=== PATIENT | male | born 1965 | race American Indian/Alaskan Native ===

== ENCOUNTER 2019-09-23 06:15 | Day surgery (SDC) | payer MEDICARE, OTHER ==
[2019-09-23] MEDS ORDERED: SODIUM CHLORIDE 0.9% 500 ML 500 ML ONE (06:55)
[2019-09-23 07:16] LABS: Mean Corpuscular HGB Conc 32 % (32-34); Mean Corpuscular Volume 82 fl (84-94); Platelet Count 344 K/mm3 (140-440); Red Blood Count 3.42 M/mm3 (3.65-5.03); Red Cell Distribution Width 19.1 % (13.2-15.2)
[2019-09-23 07:26] LABS: Calcium 9.3 mg/dL (8.4-10.2)
[2019-09-23 07:27] LABS: INR 0.98 (0.87-1.13)
[2019-09-23 07:28] LABS: Partial Thromboplastin Time 38.2 Sec. (24.2-36.6)
[2019-09-23] MEDS: SODIUM CHLORIDE 0.9% 500 ML 500 ML IV SCH ×2 (07:38→09:22)
[2019-09-23] MEDS ORDERED: SODIUM CHLORIDE 0.9% 500 ML 0 ML ONE (08:31)
[2019-09-23] MEDS ORDERED: HEPARIN/NS 5000 UNIT/500ML 1,000 ML IR ONE ×2 (08:31→10:56)
[2019-09-23] MEDS: fentaNYL 100 MCG/2 ML INJ ONE ×8 (09:20→12:27)
[2019-09-23] MEDS ORDERED: ceFAZolin/Water 2 GM/20 ML 2 GM/20 ML SYRINGE IV ONE (09:20)
[2019-09-23] MEDS: MIDAZOLAM 2 MG/2 ML INJ ONE ×9 (09:21→12:36)
[2019-09-23] MEDS: LIDOCAINE (2%) 20 MG/1 ML VIAL 20 ML MDV INFILTRATI ONE ×3 (09:21→11:00)
[2019-09-23] MEDS: HEPARIN 10,000 UNITS/10 ML VIAL ONE ×4 (09:53→12:10)
[2019-09-23] MEDS ORDERED: diphenhydrAMINE 50 MG/ML VIAL ONE (10:00)
[2019-09-23] MEDS ORDERED: methylPREDNISolone Sod Succinate 125 MG/2 ML INJ ONE (10:00)
[2019-09-23] MEDS ORDERED: FAMOTIDINE 20 MG/2 ML INJ IV ONE (10:02)
[2019-09-23] MEDS ORDERED: LIDOCAINE (2%) 20 MG/1 ML VIAL 20 ML MDV INFILTRATI ONE (12:32)
[2019-09-23] MEDS ORDERED: MIDAZOLAM 2 MG/2 ML INJ ONE (12:33)
[2019-09-23] MEDS ORDERED: fentaNYL 100 MCG/2 ML INJ ONE (12:34)
[2019-09-23] MEDS ORDERED: CLOPIDOGREL 300 MG TAB ONE (12:37)
[2019-09-23] MEDS ORDERED: ASPIRIN 81 MG TAB CHEW ONE (12:37)
--- NOTE | 2019-09-23 14:32 | Short Stay Summary ---
Short Stay Documentation Date of service: 09/23/19 Narrative H&P: 54-year-old male with critical limb ischemia of the left lower extremity who presents for revascularization. - History Principal diagnosis: Critical limb ischemia of the left lower extremity H&P: obtained from office - Allergies and Medications Current Medications: Allergies Cephalosporins Allergy (Severe, Verified 09/23/19 07:07) Unknown caused kidney failure oxycodone [From Percocet] Allergy (Verified 09/23/19 07:03) Nausea tacrolimus [From Prograf] Allergy (Verified 09/23/19 07:03) Itching Home Medications Medication Instructions Recorded Confirmed Last Taken Type Amlodipine Besylate [Norvasc] 10 mg PO DAILY 05/08/18 09/23/19 09/23/19 History Atorvastatin [Lipitor Tab] 40 mg PO QHS 05/08/18 09/23/19 05/07/18 History 40 Escitalopram [Lexapro] 10 mg PO DAILY 05/08/18 09/23/19 09/23/19 History Furosemide [Lasix TAB] 40 mg PO DAILY 05/08/18 09/23/19 09/23/19 History Insulin Glargine,Hum.rec.anlog 12 unit SQ QAM 05/08/18 09/23/19 09/22/19 History [Lantus] Metoprolol Succinate [Toprol Xl] 100 mg PO DAILY 05/08/18 09/23/19 09/23/19 History allopurinoL [Zyloprim] 300 mg PO DAILY 05/08/18 09/23/19 09/23/19 History cycloSPORINE, MODIFIED [Gengraf] 25 mg PO BID 05/08/18 09/23/19 09/23/19 History hydrALAZINE [Apresoline TAB] 100 mg PO TID 05/08/18 09/23/19 09/23/19 History predniSONE [Deltasone] 5 mg PO DAILY 05/08/18 09/23/19 09/23/19 History AtorvaSTATin [Lipitor] 40 mg PO DAILY 09/23/19 09/23/19 09/23/19 History Colchicine 0.6 mg PO DAILY 09/23/19 09/23/19 09/23/19 History Escitalopram [Lexapro] 10 mg PO DAILY 03/17/20 03/17/20 03/17/20 History Furosemide [Lasix TAB] 80 mg PO DAILY 09/23/19 09/23/19 09/23/19 History Glimepiride [Amaryl] 1 mg PO QAM 09/23/19 09/23/19 09/22/19 History ISOSORBIDE MONOnitrate [Imdur ER] 60 mg PO DAILY 09/23/19 09/23/19 09/23/19 History Insulin Glargine,Hum.rec.anlog 8 unit SQ PMHY 09/23/19 09/23/19 09/22/19 History [Lantus Solostar] Active Medications Sodium Chloride (Nacl 0.9% 500 Ml) 500 mls @ 50 mls/hr IV DIRECT KATE Last Admin: 09/23/19 09:22 Dose: 50 mls/hr Documented by: - Physical exam General appearance: no acute distress Lungs: Normal air movement Gastrointestinal: distended (Hernia) Extremities: normal temperature, normal color - Brief post op/procedure progress note Date of procedure: 09/23/19 Pre-op diagnosis: Critical limb ischemia of the left lower extremity Post-op diagnosis: same Procedure: 1. Ultrasound-guided access of the right common femoral artery. 2. CO2 angiography of the right lower extremity. 3. Selection of the abdominal aorta with CO2 angiography. 4. Selection of the left external iliac artery, common femoral artery, and superficial femoral artery with CO2 angiography. 5. Ultrasound-guided access of the left popliteal artery. 6. Flossing of the left superficial femoral artery from a right common femoral artery and left popliteal approach. 7. Deployment of a 7 mm spider embolic protection device in the left popliteal artery 8. Angioplasty of the left mid and distal superficial femoral artery and proximal popliteal artery with a 3 mm x 120 mm angioplasty balloon 9. Lipoplasty of the left mid and distal superficial femoral artery and proximal popliteal artery with a 6 mm x 60 mm lipoplasty shockwave balloon 10. Angioplasty of the left mid and distal superficial femoral artery with a 6 mm x 150 mm iNPACT DCB 11. Angioplasty of the left distal superficial femoral artery and proximal popliteal artery with a 6 mm x 100 mm angioplasty balloon and 6 mm x 150 mm iNPACT DCB 12. Closure of the right common femoral artery with a 6 [place] pro glide Anesthesia: local (With conscious sedation) Surgeon: LEA ROSS VERONICA Estimated blood loss: minimal Condition: stable - Hospital course Hospital course: Patient tolerated procedure well. Loaded on aspirin and Plavix. Patient was discharged successfully after 4 hours. - Disposition Condition at discharge: Stable Disposition: [id number] TO HOME OR SELFCARE - Discharge Diagnoses (1) Critical lower limb ischemia Status: Acute (2) Atherosclerotic peripheral vascular disease with ulceration Status: Acute (3) Status post kidney transplant Status: Acute (4) Status post pancreas transplantation Status: Acute Short Stay Discharge Plan Activity: advance as tolerated Weight Bearing Status: Weight Bear as Tolerated Diet: renal Wound: keep clean and dry, per wound nurse instructions (Can remove pressure dressing tomorrow morning) Additional Instructions: follow up with Primary Medical doctor in 1 week, return to Emergency Room for medical emergencies (ER). Follow up with: BYRON COOLEY MD [Primary Care Provider] - 7 Days Forms: Post Arteriogram Instruct Prescriptions: Aspirin [Aspirin BABY CHEW TAB] 81 mg PO QDAY #30 tab.chew Clopidogrel [Plavix] 75 mg PO QDAY #30 tablet
--- NOTE | 2019-09-23 14:32 | Operative Report ---
Operative Report Operative Report: EXAM: 1. Ultrasound-guided access of the right common femoral artery. 2. CO2 angiography of the right lower extremity. 3. Selection of the abdominal aorta with CO2 angiography. 4. Selection of the left external iliac artery, common femoral artery, and superficial femoral artery with CO2 angiography. 5. Ultrasound-guided access of the left popliteal artery. 6. Flossing of the left superficial femoral artery from a right common femoral artery and left popliteal approach. 7. Deployment of a 7 mm spider embolic protection device in the left popliteal artery 8. Angioplasty of the left mid and distal superficial femoral artery and proximal popliteal artery with a 3 mm x 120 mm angioplasty balloon 9. Lipoplasty of the left mid and distal superficial femoral artery and proximal popliteal artery with a 6 mm x 60 mm lipoplasty shockwave balloon 10. Angioplasty of the left mid and distal superficial femoral artery with a 6 mm x 150 mm iNPACT DCB 11. Angioplasty of the left distal superficial femoral artery and proximal popliteal artery with a 6 mm x 100 mm angioplasty balloon and 6 mm x 150 mm iNPACT DCB 12. Closure of the right common femoral artery with a 6 Citizen [place] pro glide DATE: 09/23/2019 FORGING DIES FINAL FINISHER: LEA MARTIN MD INDICATION: Critical limb ischemia of the left lower extremity with peripheral vascular disease and ulceration MEDICATIONS: Please see nursing report for full details. DEVICES: 6 mm x 150 mm iNPACT DCB 6 mm x 60 mm shockwave angioplasty balloon 3 mm x 120 mm angioplasty balloon 6 mm x 100 mm angioplasty balloon 7 mm spider embolic protection device CONTRAST: 16 mL's of nonionic contrast, CO2 angiography PROCEDURE: The risks, benefits, and alternatives were discussed with the patient; written informed consent was obtained. The groins were prepped and draped in a sterile fashion and the left leg was prepped and draped in a sterile fashion in the midportion of the case. Ultrasound was used to evaluate the right common femoral artery which was patent. Under direct ultrasound guidance, the right common femoral artery was accessed with a 21-gauge micropuncture needle. 0.018 inch wire was passed into the aorta. Needle was exchanged for transitional dilator. Wire was exchanged for a 0.035 inch wire. Transitional dilator was exchanged for 5 Citizen [place] sheath. CO2 angiography was performed demonstrating patency of the right common femoral artery, proximal most superficial femoral artery, profundofemoral artery, and external iliac artery. The abdominal aorta was selected and CO2 angiography was performed. The infrarenal abdominal aorta is patent. The bilateral common iliac arteries and external iliac arteries are patent. The internal iliac arteries are patent. The left renal artery arising from the external iliac artery is partially visualized. The left external iliac artery was selected and superficial femoral artery was selected. CO2 angiography demonstrated a proximal 5 cm plaque that resulted in 40% narrowing, and the mid superficial femoral artery with multifocal 50% narrowings with a distal superficial femoral artery short segment occlusion due to a large plaque with tandem 70% narrowing and 50% narrowings. The proximal popliteal artery has a focal 50% narrowing. The rest of the popliteal artery was patent. The tibioperoneal trunk is patent. The peroneal artery has diffuse 20 to 30% narrowing but is the dominant flow to the foot and is patent. The anterior tibial artery is occluded after the first 5 cm and the posterior tibial artery is occluded after the first few centimeters and both of these vessels resulted in numerous extensive corkscrew collaterals supplying the foot. 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 The patient was heparinized. Sheath was exchanged for a 6 Citizen [place] 65 cm [place] destination positioned in the left superficial femoral artery. Multiple wires and catheters were used to attempt to cross the short segment focal 99% narrowing/occlusion, but the wires would not pass. Ultimately, I could not cross from a up and over approach. Ultrasound was used to evaluate the left proximal popliteal artery after the site was prepped and draped in a sterile fashion. Under direct ultrasound guidance, the left popliteal artery was accessed with a 21-gauge micropuncture needle. 0.018 inch wire was passed into the superficial femoral artery. Needle was exchanged for the inner portion of the transitional dilator. Wire was exchanged for a V 18 wire which was used to cross the occlusion. The V 18 wire was snared and the artery was then flossed. Through the up and over approach, a 7 mm spider embolic protection device was deployed in the left distal superficial femoral artery. 3 mm x 120 mm angioplasty balloon was used to predilate the left superficial femoral artery and proximal popliteal artery. Shockwave lithotripsy 6 mm x 60 mm angioplasty balloon was then advanced over the wire and used to shockwave angioplasty the superficial femoral artery and proximal popliteal artery. 6 mm x 150 mm drug- coated balloon was then used to perform angioplasty of the mid superficial femoral artery, but it would not pass into the distal superficial femoral artery. The distal superficial femoral artery was again treated with a 6 mm x 100 mm angioplasty balloon at higher pressure. The embolic protection device was then retrieved and a 0.035 inch wire was passed into the distal popliteal artery. 6 mm x 150 mm drug-coated balloon was then used to perform angioplasty of the distal superficial femoral artery and proximal popliteal artery as the popliteal artery micropuncture sheath was removed. The site was then tamponaded. After removal, digital subtraction angiography was performed demonstrating less than 10 to 20% residual narrowing of the distal superficial femoral artery, mid superficial femoral artery, and proximal popliteal artery. The runoff was uncha nged. All wires, catheters, and sheaths were retracted to the right external iliac artery and the site was closed with a 6 Citizen [place] pro glide. Sterile dressing and pressure dressing applied. Patient tolerated the procedure well. No immediate postprocedural complications. FINDINGS: Please see procedure note above IMPRESSION: 1. Successful ultrasound-guided access of the right common femoral artery and left popliteal artery with pro-glide assisted closure of the right common femoral artery. 2. Successful angioplasty and lithoplasty of the left superficial femoral artery and popliteal artery.
[2019-09-23 17:12] VITALS: BP 141/76
== END 2019-09-23 06:16 | disposition home or self-care (01) ==
LOC: CATHLABREC 06:15
PROVIDERS: ATTEND Radiology Diagnostic Radiology
DX: I70.245 Atherosclerosis of native arteries of left leg with ulceration of other part of foot (principal); I13.2 Hypertensive heart and chronic kidney disease with heart failure and with stage 5 chronic kidney disease, or end stage renal disease; N18.6 End stage renal disease; I50.9 Heart failure, unspecified; E78.00 Pure hypercholesterolemia, unspecified; G47.30 Sleep apnea, unspecified; Z99.2 Dependence on renal dialysis; Z79.899 Other long term (current) drug therapy; Z79.4 Long term (current) use of insulin; Z79.82 Long term (current) use of aspirin; Z94.0 Kidney transplant status; Z94.83 Pancreas transplant status; Z98.41 Cataract extraction status, right eye; Z88.8 Allergy status to other drugs, medicaments and biological substances
CPT/HCPCS: 36415; 37224; 75625; 75710; 76937; 80048; 85027; 85610; 85730; 99156; 99157; C1725; C1760; C1769; C1773; C1884; C1887; C2623; J0690; J1200; J1644; J2250; J2930; J3010; J7040; Q9967

== ENCOUNTER 2021-08-23 07:26 | Day surgery (SDC) | payer MEDICARE ==
[2021-08-23] MEDS ORDERED: SODIUM CHLORIDE 0.9% 1000 ML 1,000 ML IV SCH (08:15)
[2021-08-23 08:33] LABS: Hematocrit 36.3 % (35.5-45.6); Hemoglobin 11.8 gm/dl (11.8-15.2); Mean Corpuscular HGB Conc 33 % (32-34); Mean Corpuscular Volume 77 fl (84-94); Red Blood Count 4.68 M/mm3 (3.65-5.03)
[2021-08-23 08:34] LABS: Platelet Count 241 K/mm3 (140-440); Red Cell Distribution Width 28.1 % (13.2-15.2)
[2021-08-23 08:43] LABS: INR 0.81 (0.87-1.13)
[2021-08-23 08:44] LABS: Partial Thromboplastin Time 25.7 Sec. (24.2-36.6)
[2021-08-23 09:17] LABS: Blood Urea Nitrogen TNR mg/dL (9-20)
[2021-08-23 09:18] LABS: BUN/Creatinine Ratio TNR; Calcium TNR mg/dL (8.4-10.2); Hemolysis Index TNR
[2021-08-23 10:18] LABS: Calcium 8.7 mg/dL (8.4-10.2)
[2021-08-23] MEDS ORDERED: HEPARIN/NS 5000 UNIT/500ML 1,000 ML IR ONE (12:37)
[2021-08-23] MEDS ORDERED: LIDOCAINE (1%) 10 MG/1 ML VIAL 20 ML MDV ONE (12:37)
[2021-08-23] MEDS: HEPARIN 10,000 UNITS/10 ML VIAL ONE ×2 (13:05→14:27)
[2021-08-23] MEDS: MIDAZOLAM 2 MG/2 ML INJ ONE ×4 (13:16→15:19)
[2021-08-23] MEDS: fentaNYL 100 MCG/2 ML INJ ONE ×4 (13:17→15:19)
[2021-08-23] MEDS ORDERED: HEPARIN/NS 5000 UNIT/500ML 500 ML IR ONE (15:01)
[2021-08-23] MEDS ORDERED: CLOPIDOGREL 300 MG TAB ONE (15:25)
[2021-08-23] MEDS ORDERED: CLOPIDOGREL 300 MG TAB PO ONE (15:40)
[2021-08-23] MEDS ORDERED: ASPIRIN 81 MG TAB CHEW PO SCH (16:00)
--- NOTE | 2021-08-23 16:13 | Short Stay Summary ---
Short Stay Documentation Date of service: 08/23/21 Narrative H&P: 56-year-old male with end-stage renal disease status post renal transplant with multiple medical issues including congestive heart failure who presents with bilateral lower extremity critical limb ischemia. Plan for right lower extremity critical limb ischemia intervention. Risk, benefits, alternative discussed, patient agrees with procedure. - History Principal diagnosis: Critical limb ischemia of the right lower extremity H&P: obtained from office - Allergies and Medications Current Medications: Allergies Cephalosporins Allergy (Severe, Verified 09/23/19 07:07) Unknown caused kidney failure oxycodone [From Percocet] Allergy (Verified 09/23/19 07:03) Nausea tacrolimus [From Prograf] Allergy (Verified 09/23/19 07:03) Itching Home Medications Medication Instructions Recorded Confirmed Last Taken Type Amlodipine Besylate [Norvasc] 10 mg PO DAILY 05/08/18 08/23/21 08/23/21 History 10 MG Atorvastatin [Lipitor Tab] 40 mg PO QHS 05/08/18 08/23/21 08/22/21 History 40 MG Insulin Glargine,Hum.rec.anlog 12 unit SQ QAM 05/08/18 08/23/21 08/22/21 History [Lantus] 12 UNITS Metoprolol Succinate [Toprol Xl] 100 mg PO DAILY 05/08/18 08/23/21 08/23/21 07:00 History 100 MG allopurinoL [Zyloprim] 300 mg PO DAILY 05/08/18 08/23/21 08/23/21 07:00 History 300 MG cycloSPORINE, MODIFIED [Gengraf] 25 mg PO BID 05/08/18 08/23/21 08/23/21 07:00 History 25 MG hydrALAZINE [Apresoline TAB] 100 mg PO TID 05/08/18 08/23/21 08/23/21 History 100 UNITS predniSONE [Deltasone] 5 mg PO DAILY 05/08/18 08/23/21 08/23/21 History 0700 Aspirin [Aspirin BABY CHEW TAB] 81 mg PO QDAY #30 tab.chew 09/23/19 08/23/21 Unknown Rx Clopidogrel [Plavix] 75 mg PO QDAY #30 tablet 09/23/19 08/23/21 08/23/21 Rx 75 MG Colchicine 0.6 mg PO DAILY 09/23/19 08/23/21 09/23/19 History Escitalopram [Lexapro] 20 mg PO DAILY 09/23/19 08/23/21 08/23/21 History 0700 Furosemide [Lasix TAB] 80 mg PO DAILY 09/23/19 08/23/21 08/23/21 07:00 History 80 MG Glimepiride [Amaryl] 1 mg PO QAM 09/23/19 08/23/21 08/23/21 History 1 MG ISOSORBIDE MONOnitrate [Imdur ER] 60 mg PO DAILY 09/23/19 08/23/21 08/23/21 History 60 MG Insulin Glargine,Hum.rec.anlog 8 unit SQ PMHY 09/23/19 08/23/21 08/22/21 History [Lantus Solostar] 10 UNTS Sodium Bicarbonate 650 mg PO BID 08/23/21 08/23/21 08/23/21 History 650 MG cycloSPORINE, MODIFIED [Gengraf] 25 mg PO BID 08/23/21 08/23/21 08/23/21 History 25 MG Active Medications Aspirin (Aspirin 81 Mg Tab Chew) 81 mg PO QDAY KATE Last Admin: 08/23/21 16:07 Dose: 81 mg Sodium Chloride (Nacl 0.9% 1000 Ml) 1,000 mls @ 42 mls/hr IV DIRECT KATE - Physical exam General appearance: no acute distress Lungs: Normal air movement Gastrointestinal: other (Large ventral hernia) Extremities: abnormal (Wounds of the bilateral lower extremities) - Brief post op/procedure progress note Date of procedure: 08/23/21 Pre-op diagnosis: Critical limb ischemia of the right lower extremit Post-op diagnosis: same Procedure: 1. Ultrasound-guided access of the left common femoral artery. 2. CO2 angiography of the left lower extremity. 3. Selection of the abdominal aorta and CO2 angiography 4. Selection of the right external iliac artery, common femoral artery, superficial femoral artery, and popliteal artery with a combination of CO2 and conventional angiography. 5. Shockwave lithoplasty of the right superficial femoral artery and popliteal artery with a 5 mm x 60 mm shockwave lithoplasty device 6. Angioplasty of the right popliteal artery and entire superficial femoral artery with a 5 mm x 150 mm iNPACT balloon (x3) 7. Angioplasty of the right popliteal artery with a 6 mm x 120 mm angioplasty balloon, 5 mm x 100 mm angiosculpt, and 6 mm x 150 mm iNPACT balloon 8. Closure of the left common femoral artery with a 6 Burkin[place] Pro style Anesthesia: local (With conscious sedation) Surgeon: LEA MARTIN Estimated blood loss: minimal Condition: stable - Hospital course Hospital course: Patient tolerated the procedure well. No immediate postprocedural complications. Ready for discharge in 2 hours. Loaded with aspirin and Plavix. - Disposition Condition at discharge: Stable Disposition: 01 HOME / SELF CARE / HOMELESS - Discharge Diagnoses (1) Atherosclerotic peripheral vascular disease with ulceration Status: Acute (2) Critical lower limb ischemia Status: Acute (3) Status post kidney transplant Status: Acute (4) Status post pancreas transplantation Status: Acute Short Stay Discharge Plan Activity: advance as tolerated Weight Bearing Status: Weight Bear as Tolerated Diet: renal Wound: keep clean and dry Additional Instructions: Do not lift more than 10 pounds for 3 to 5 days Follow up with: ANUM TORRES [Other] - 7 Days
--- NOTE | 2021-08-23 16:24 | Operative Report ---
Operative Report Operative Report: EXAM: 1. Ultrasound-guided access of the left common femoral artery. 2. CO2 angiography of the left lower extremity. 3. Selection of the abdominal aorta with CO2 angiography. 4. Selection of the right external iliac artery, common femoral artery, superficial femoral artery and popliteal artery with CO2 angiography and conventional angiography 5. Angioplasty of the right popliteal artery with a 3 mm x 120 mm angioplasty balloon 6. Attempted deployment of a 7 mm spider EPD in the right popliteal artery, but the device would not cross. 7. Lipoplasty of the right superficial femoral artery and popliteal artery with a 5 mm x 60 mm lipoplasty shockwave balloon 8. Angioplasty of the right popliteal artery and entire superficial femoral artery with a 5 mm x 150 mm iNPACT balloon (x3) 9. Angioplasty of the right popliteal artery with a 6 mm x 120 mm angioplasty balloon, 5 mm x 100 mm angiosculpt, and 6 mm x 150 mm iNPACT balloon 10. Closure of the left common femoral artery with a 6 [place] Pro style DATE: 08/23/2021 CLOTHES DRIER ASSEMBLER: LEA MARTIN MD INDICATION: Critical limb ischemia of the right lower extremity with peripheral vascular disease and ulceration MEDICATIONS: Please see nursing report for full details. DEVICES: 6 mm x 150 mm iNPACT DCB 5 mm x 60 mm shockwave angioplasty balloon 3 mm x 120 mm angioplasty balloon 6 mm x 120 mm angioplasty balloon 5 mm x 150 mm iNPACT DCB (x3) 5 mm x 100 mm angiosculpt CONTRAST: 25 mL's of nonionic contrast, CO2 angiography PROCEDURE: The risks, benefits, and alternatives were discussed with the patient; written informed consent was obtained. The groins were prepped and draped in a sterile fashion and the right leg was prepped and draped in a sterile fashion in the midportion of the case. Ultrasound was used to evaluate the left common femoral artery which was patent. Under direct ultrasound guidance, the left common femoral artery was accessed with a 21-gauge micropuncture needle. 0.018 inch wire was passed into the aorta. Needle was exchanged for transitional dilator. Wire was exchanged for a 0.035 inch wire. Transitional dilator was exchanged for 5 [place] sheath. CO2 angiography was performed demonstrating patency of the left common femoral artery, proximal most superficial femoral artery, profunda femoral artery, and external iliac artery. The abdominal aorta was selected and CO2 angiography was performed. The infrarenal abdominal aorta is patent. The bilateral common iliac arteries and external iliac arteries are patent. The internal iliac arteries are patent. The left renal artery arising from the external iliac artery is partially visualized. The right external iliac artery, superficial femoral artery, and popliteal artery were selected and intermittent angiography was performed. The right common femoral artery is patent. The right profunda femoral artery is patent. The right proximal superficial femoral artery has a focal 80 to 90% lesion which is a calcified plaque. The mid right superficial femoral artery has a focal 40% narrowing. The right distal superficial femoral artery has an area that extends 5 to 10 cm that has diffuse 50% narrowing with focal 90% narrowing in the distal portion of the vessel which extends into the [id number] popliteal artery. The right mid and below the knee popliteal artery is patent. The tibioperoneal trunk is 70 % distally narrowed and the peroneal artery has tandem 50% narrowings in the proximal portion of the vessel. The rest of the peroneal artery is patent and extends into numerous collaterals at the level of the foot. The posterior tibial artery is occluded and the anterior tibial artery is occluded after 1 cm and extends into numerous corkscrew collaterals that passed into the foot compatible with Buerger's disease. After refusing the diagnostic angiogram, I decided that the patient required intervention for tissue loss/critical limb ischemia. The patient was heparinized. Sheath was exchanged for a 6 [place] 45 cm [place] destination positioned in the right common femoral artery. Multiple wires and catheters were used to attempt to cross the short segment focal 99% narrowing/occlusion which was successful. Support catheter was then advanced into the popliteal artery and digital subtraction angiography was performed confirming position. I attempted to pass an embolic protection device over the 0.018 inch wire, but the embolic protection device would not pass despite multiple attempts. 3 mm x 120 mm angioplasty balloon was used to perform angioplasty of the popliteal artery for predilatation. I attempted one last time to pass the spider device, but it would not pass over the wire even with predilatation Therefore I decided not to use embolic protection device. Wire was then exchanged for a 0.014 inch Choice PT extra-support. Due to the heavily calcific nature of the lesion, I decided to use a shockwave lithotripsy balloon. 5 mm x 60 mm angioplasty balloon was used to treat the popliteal artery multiple times, distal and mid SFA, and the proximal SFA. During this process, the balloon ruptured and was successfully removed Wire was exchanged for a 0.035 inch wire and 5 mm x 150 mm iNPACT balloon was used to perform angioplasty of the popliteal artery and entire superficial fe moral artery requiring 3 balloons. Digital subtraction angiography was performed demonstrating 30 to 40% residual stenosis of the proximal superficial femoral artery and did not 80% residual stenosis of the popliteal artery. 6 mm x 120 mm angioplasty balloon was used to perform angioplasty of the popliteal artery which was then followed by a wire exchange for a 0.014 inch wire and and angiosculpt 5 mm x 100 mm angioplasty balloon was used to perform angioplasty of the popliteal artery. Afterwards, wire exchanged for a 0.035 inch wire was performed and a 6 mm x 150 mm iNPACT balloon was used to perform angioplasty of the popliteal artery. Digital subtraction angiography was performed demonstrating 50% residual narrowing of the popliteal artery. The areas of residual narrowing were due to heavy calcification of these areas. I considered stenting them, but the stent would not expand because of the underlying heavy calcification and would likely result in a poor outcome. I decided to leave the lesions alone for now with plan for possible future intervention. All wires, catheters, and sheaths were retracted to the left external iliac artery and the left common femoral site was closed with a 6 [place] pro style. Sterile dressing and pressure dressing applied. Patient tolerated the procedure well. No immediate postprocedural complications. FINDINGS: Please see procedure note above IMPRESSION: 1. Successful ultrasound-guided access of the left common femoral artery with pro-glide assisted closure. 2. Successful angioplasty and lithoplasty of the right superficial femoral artery and popliteal artery.
[2021-08-23 17:03] VITALS: BP 153/47
== END 2021-08-23 07:27 | disposition home or self-care (01) ==
LOC: CATHLABREC 07:26
PROVIDERS: ATTEND Radiology Diagnostic Radiology
DX: I70.235 Atherosclerosis of native arteries of right leg with ulceration of other part of foot (principal); I70.239 Atherosclerosis of native arteries of right leg with ulceration of unspecified site; E11.51 Type 2 diabetes mellitus with diabetic peripheral angiopathy without gangrene; L97.919 Non-pressure chronic ulcer of unspecified part of right lower leg with unspecified severity; I99.8 Other disorder of circulatory system; I13.2 Hypertensive heart and chronic kidney disease with heart failure and with stage 5 chronic kidney disease, or end stage renal disease; E11.22 Type 2 diabetes mellitus with diabetic chronic kidney disease; I50.9 Heart failure, unspecified; N18.6 End stage renal disease; E78.00 Pure hypercholesterolemia, unspecified; G47.30 Sleep apnea, unspecified; M19.90 Unspecified osteoarthritis, unspecified site; F32.9 Major depressive disorder, single episode, unspecified; D64.9 Anemia, unspecified; Z79.899 Other long term (current) drug therapy; Z88.8 Allergy status to other drugs, medicaments and biological substances; Z79.4 Long term (current) use of insulin; Z79.82 Long term (current) use of aspirin; Z94.0 Kidney transplant status; Z94.83 Pancreas transplant status; Z98.41 Cataract extraction status, right eye; Z87.01 Personal history of pneumonia (recurrent); Z98.890 Other specified postprocedural states; Z80.8 Family history of malignant neoplasm of other organs or systems
CPT/HCPCS: 36415; 37224; 75625; 75710; 76937; 80048; 85027; 85610; 85730; 99156; 99157; C1725; C1760; C1769; C1884; C1887; C2623; J1644; J2250; J3010; J3490; J7030; Q0162; Q9967

== ENCOUNTER 2021-09-06 07:05 | Day surgery (SDC) | payer MEDICARE ==
[2021-09-06] MEDS ORDERED: SODIUM CHLORIDE 0.9% 1000 ML 1,000 ML IV SCH (08:00)
[2021-09-06 08:33] LABS: Hematocrit 35.8 % (35.5-45.6); Hemoglobin 11.9 gm/dl (11.8-15.2); Mean Corpuscular HGB Conc 33 % (32-34); Mean Corpuscular Volume 79 fl (84-94); Platelet Count 286 K/mm3 (140-440); Red Blood Count 4.55 M/mm3 (3.65-5.03)
[2021-09-06 08:38] LABS: INR 0.85 (0.87-1.13)
[2021-09-06 08:40] LABS: Partial Thromboplastin Time 35.7 Sec. (24.2-36.6)
[2021-09-06 08:49] LABS: Calcium 9.5 mg/dL (8.4-10.2)
[2021-09-06 08:52] LABS: Red Cell Distribution Width 25.2 % (13.2-15.2)
[2021-09-06] MEDS ORDERED: LIDOCAINE (2%) 20 MG/1 ML VIAL 20 ML MDV INFILTRATI ONE (09:28)
[2021-09-06] MEDS ORDERED: HEPARIN/NS 5000 UNIT/500ML 1,000 ML IR ONE (09:28)
[2021-09-06] MEDS ORDERED: HEPARIN 10,000 UNITS/10 ML VIAL ONE (09:28)
[2021-09-06] MEDS: MIDAZOLAM 2 MG/2 ML INJ ONE ×2 (10:26→10:30)
[2021-09-06] MEDS: fentaNYL 100 MCG/2 ML INJ ONE ×2 (10:26→10:30)
[2021-09-06] MEDS ORDERED: MIDAZOLAM 2 MG/2 ML INJ ONE (10:43)
[2021-09-06] MEDS ORDERED: fentaNYL 100 MCG/2 ML INJ ONE (10:44)
[2021-09-06] MEDS ORDERED: CLOPIDOGREL 300 MG TAB ONE (11:31)
[2021-09-06] MEDS ORDERED: ASPIRIN 81 MG TAB CHEW ONE (11:32)
--- NOTE | 2021-09-06 11:55 | Short Stay Summary ---
Short Stay Documentation Date of service: 09/06/21 Narrative H&P: 56-year-old male status post pancreas and kidney transplant with bilateral lower extremity critical limb ischemia who presents for revascularization of the left lower extremity. Risk, benefits, alternatives discussed, patient agrees with procedure. Held diuretics the day before and today. Provided IV normal saline infusion. - History Principal diagnosis: CLI of the left lower extremity H&P: obtained from office - Allergies and Medications Current Medications: Allergies Cephalosporins Allergy (Severe, Verified 09/23/19 07:07) Unknown caused kidney failure oxycodone [From Percocet] Allergy (Verified 09/23/19 07:03) Nausea tacrolimus [From Prograf] Allergy (Verified 09/23/19 07:03) Itching Home Medications Medication Instructions Recorded Confirmed Last Taken Type Amlodipine Besylate [Norvasc] 10 mg PO DAILY 05/08/18 09/06/21 09/06/21 History 1 tab Atorvastatin [Lipitor Tab] 40 mg PO QHS 05/08/18 09/06/21 09/05/21 History 1 tab Insulin Glargine,Hum.rec.anlog 12 unit SQ QAM 05/08/18 09/06/21 09/05/21 History [Lantus] Metoprolol Succinate [Toprol Xl] 100 mg PO DAILY 05/08/18 09/06/21 09/06/21 History 0600 allopurinoL [Zyloprim] 300 mg PO DAILY 05/08/18 09/06/21 09/06/21 06:00 History 1 tab hydrALAZINE [Apresoline TAB] 100 mg PO TID 05/08/18 09/06/21 09/06/21 06:00 History 1 tab predniSONE [Deltasone] 5 mg PO DAILY 05/08/18 09/06/21 09/06/21 06:00 History 1 tab Aspirin [Aspirin BABY CHEW TAB] 81 mg PO QDAY #30 tab.chew 09/23/19 09/06/21 09/05/21 Rx 1 tab Clopidogrel [Plavix] 75 mg PO QDAY #30 tablet 09/23/19 09/06/21 09/05/21 Rx 1 tab Colchicine 0.6 mg PO DAILY 09/23/19 09/06/21 09/23/19 History Escitalopram [Lexapro] 20 mg PO DAILY 09/23/19 09/06/21 09/05/21 History 0600 Furosemide [Lasix TAB] 80 mg PO DAILY 09/23/19 09/06/21 09/05/21 History 1 tab Glimepiride [Amaryl] 1 mg PO QAM 09/23/19 09/06/21 09/05/21 History 0700 ISOSORBIDE MONOnitrate [Imdur ER] 60 mg PO DAILY 09/23/19 09/06/21 09/06/21 06:00 History 1 tab Insulin Glargine,Hum.rec.anlog 8 unit SQ PMHY 09/23/19 09/06/21 09/05/21 History [Lantus Solostar] Sodium Bicarbonate 650 mg PO BID 08/23/21 09/06/21 09/06/21 06:00 History 1 tab cycloSPORINE, MODIFIED [Gengraf] 25 mg PO BID 08/23/21 09/06/21 09/06/21 06:00 History 1 tab Active Medications Sodium Chloride (Nacl 0.9% 1000 Ml) 1,000 mls @ 100 mls/hr IV DIRECT KATE - Physical exam General appearance: no acute distress HEENT: EOMI, Mucous membr. moist/pink Lungs: Normal air movement Heart: Regular rate Gastrointestinal: other (Large ventral hernia) Extremities: abnormal (Wounds of the bilateral lower extremity) - Brief post op/procedure progress note Date of procedure: 09/06/21 Pre-op diagnosis: LLE PVD with ulcers and CLI Post-op diagnosis: same Procedure: 1. Ultrasound-guided access of the right common femoral artery. 2. CO2 angiography of the right lower extremity 3. Selection of the abdominal aorta with CO2 angiography 4. Selection of the left external iliac artery, superficial femoral artery, and popliteal artery with CO2 angiography of the left lower extremity. 5. Fluoroscopic guided placement of a 7 mm spider embolic protection device in the left popliteal artery. 6. Atherectomy of the left qvors-ydu-ytzv popliteal artery with a [employer] M device 7. Shockwave lithoplasty of the left tufiq-bpn-rpfg popliteal artery with a 6 mm x 60 mm shockwave lithoplasty balloon 8. Angioplasty of the left iblhc-owd-zzif popliteal artery with a 6 mm x 150 mm iNPACT balloon 9. Capture of the spider embolic protection device 10. Closure of the right common femoral artery with a 6 [place] Pro style Anesthesia: local (With conscious sedation) Surgeon: LEA MARTIN Estimated blood loss: minimal Condition: stable - Hospital course Hospital course: Patient tolerated the procedure well. He had 2 hours of fluid before procedure. 1 hour fluid during procedure. 2 hours fluid after procedure. Fluid is at 100 mL/h (essential 1 mL/kg/h). - Disposition Condition at discharge: Stable Disposition: 01 HOME / SELF CARE / HOMELESS - Discharge Diagnoses (1) Atherosclerotic peripheral vascular disease with ulceration Status: Acute (2) Critical lower limb ischemia Status: Acute (3) Status post kidney transplant Status: Acute (4) Status post pancreas transplantation Status: Acute Short Stay Discharge Plan Activity: advance as tolerated Weight Bearing Status: Weight Bear as Tolerated (Do not lift more than 10 pounds for 1 week ; keep right groin dry for the next 3 to 5 days) Diet: renal Wound: keep clean and dry Follow up with: CARISSA TORRES [Other] - 7 Days
--- NOTE | 2021-09-06 11:56 | Operative Report ---
Operative Report Operative Report: EXAM: 1. Ultrasound-guided access of the right common femoral artery. 2. CO2 angiography of the right lower extremity 3. Selection of the abdominal aorta with CO2 angiography 4. Selection of the left external iliac artery, superficial femoral artery, and popliteal artery with CO2 angiography of the left lower extremity. 5. Fluoroscopic guided placement of a 7 mm spider embolic protection device in the left popliteal artery. 6. Atherectomy of the left wyqpk-usw-bcxn popliteal artery with a [employer] M device 7. Shockwave lithoplasty of the left kyaoc-udj-fkgl popliteal artery with a 6 mm x 60 mm shockwave lithoplasty balloon 8. Angioplasty of the left ppard-ucj-exou popliteal artery with a 6 mm x 150 mm iNPACT balloon 9. Capture of the spider embolic protection device 10. Closure of the right common femoral artery with a 6 [place] Pro style DATE: 09/06/2021 PHYSICIAN AIDE: LEA MARTIN MD INDICATION: Critical limb ischemia of the left lower extremity with peripheral vascular disease and ulceration MEDICATIONS: Please see nursing report for full details. DEVICES: 6 mm x 150 mm iNPACT DCB 6 mm x 60 mm shockwave angioplasty balloon [employer] M device 7 mm spider embolic protection device CONTRAST: 11 mL's of nonionic contrast, CO2 angiography PROCEDURE: The risks, benefits, and alternatives were discussed with the patient; written informed consent was obtained. The groins were prepped and draped in a sterile fashion. Ultrasound was used to evaluate the right common femoral artery which was patent. Under direct ultrasound guidance, the right common femoral artery was accessed with a 21-gauge micropuncture needle. 0.018 inch wire was passed into the aorta. Needle was exchanged for transitional dilator. Wire was exchanged for a 0.035 inch wire. Transitional dilator was exchanged for 5 Angolan sheath. CO2 angiography was performed demonstrating patency of the right common femoral artery, proximal most superficial femoral artery, profunda femoral artery, and external iliac artery. The abdominal aorta was selected and CO2 angiography was performed. The infrar enal abdominal aorta is patent. The bilateral common iliac arteries and external iliac arteries are patent. The internal iliac arteries are patent. The left renal artery arising from the external iliac artery is partially visualized. The left external iliac artery was selected and superficial femoral artery was selected. CO2 angiography demonstrated a proximal 5 cm plaque that resulted in 40% narrowing of the left proximal superficial femoral artery. The rest of the superficial femoral artery had less than 30% stenosis. There is a 80% to 90% stenosis in the left proximalmost above-knee popliteal artery with a 70% stenosis in the yssnr-fyv-zeui to mid popliteal artery. The rest of the popliteal artery was patent. The tibioperoneal trunk is patent. The peroneal artery has diffuse 20 to 30% narrowing but is the dominant flow to the foot and is patent. The anterior tibial artery is occluded after the first 5 cm and the posterior tibial artery is occluded after the first few centimeters and both of these vessels resulted in numerous extensive corkscrew collaterals supplying the foot. 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 The patient was heparinized. Sheath was exchanged for a 6 [place] 45 cm [place] destination positioned in the left superficial femoral artery. Wire and catheters were used to cross the stenotic lesions and the left popliteal artery was selected. 7 mm spider embolic protection device was deployed in the left popliteal artery. Atherectomy was then performed of the left above the knee to mid knee popliteal artery until there was less than 40% residual stenosis. Shockwave lithotripsy 6 mm x 60 mm angioplasty balloon was then advanced over the wire and used to shockwave angioplasty of the left above-knee to mid popliteal artery. 6 mm x 150 mm drug-coated balloon was then used to perform angioplasty of the left above-knee popliteal artery to mid knee popliteal artery. Digital subtraction angiography was performed demonstrating less than 20% residual narrowing of the distal superficial femoral artery, adhcm-jai-rrpj popliteal artery and mid knee popliteal artery. The runoff was unchanged. The spider embolic protection device was then retrieved. All wires, catheters, and sheaths were retracted to the right external iliac artery and the site was closed with a 6 Angolan pro style Sterile dressing and pressure dressing applied. Patient tolerated the procedure well. No immediate postprocedural complications. FINDINGS: Please see procedure note above IMPRESSION: 1. Successful ultrasound-guided access of the right common femoral artery and left popliteal artery with pro-style assisted closure of the right common femoral artery. 2. Successful atherectomy, angioplasty and lithoplasty of the left distal superficial femoral artery and above-knee to mid knee popliteal artery.
[2021-09-06 14:34] VITALS: BP 153/78
== END 2021-09-06 07:06 | disposition home or self-care (01) ==
LOC: CATHLABREC 07:05
PROVIDERS: ATTEND Radiology Diagnostic Radiology
DX: I70.245 Atherosclerosis of native arteries of left leg with ulceration of other part of foot (principal); I13.2 Hypertensive heart and chronic kidney disease with heart failure and with stage 5 chronic kidney disease, or end stage renal disease; N18.6 End stage renal disease; I50.9 Heart failure, unspecified; I99.8 Other disorder of circulatory system; E78.00 Pure hypercholesterolemia, unspecified; G47.30 Sleep apnea, unspecified; M19.90 Unspecified osteoarthritis, unspecified site; F32.9 Major depressive disorder, single episode, unspecified; Z98.41 Cataract extraction status, right eye; Z94.0 Kidney transplant status; Z79.82 Long term (current) use of aspirin; Z87.01 Personal history of pneumonia (recurrent); Z79.4 Long term (current) use of insulin; Z79.899 Other long term (current) drug therapy; Z88.8 Allergy status to other drugs, medicaments and biological substances; Z94.83 Pancreas transplant status; Z80.8 Family history of malignant neoplasm of other organs or systems
CPT/HCPCS: 36415; 37225; 76937; 80048; 85027; 85610; 85730; 99156; 99157; C1714; C1725; C1760; C1769; C1884; C1887; C2623; J1644; J2250; J3010; J3490; J7030; Q0162; Q9967